=== PATIENT | female | born 1990 ===

== ENCOUNTER 2016-06-12 10:37 | Day surgery (SDC) | payer OTHER ==
[2016-05-08 12:19] VITALS: BMI 23.2
[2016-06-12] MEDS ORDERED: Propofol 10 mg/ml Inj (20 ML) ONE (12:30)
[2016-06-12] MEDS ORDERED: Midazolam 2 MG/2 ML VIAL ONE (12:30)
[2016-06-12 13:03] VITALS: TEMP 98.4
[2016-06-12 13:16] VITALS: RESP 16
[2016-06-12 13:36] VITALS: BP 108/72; PULSE 68; O2SAT 98
== END 2016-06-12 14:09 | disposition home or self-care (01) ==
LOC: C.ENDO 10:37
PROVIDERS: ATTEND Internal Medicine Gastroenterology
DX: K29.70 Gastritis, unspecified, without bleeding (principal); B96.81 Helicobacter pylori [H. pylori] as the cause of diseases classified elsewhere
CPT/HCPCS: 43239; 84703; 88305; 88342; J2250; J2704